=== PATIENT | male | born 2000 | race Caucasian/White ===

== ENCOUNTER → 2024-01-27 15:12 | Outpatient (REF) | payer BC, SELFPAY | LOC: RCS 15:12 | PROVIDERS: ATTENDING PHYSICIAN Nurse Practitioner Family | DX: Z76.89 Persons encountering health services in other specified circumstances (principal); F64.9 Gender identity disorder, unspecified; J30.2 Other seasonal allergic rhinitis; R00.2 Palpitations | CPT/HCPCS: 93005 ==

== ENCOUNTER → 2024-09-04 08:36 | Outpatient (REF) | payer OTHER, SELFPAY | LOC: RAD 08:36 | PROVIDERS: ATTENDING PHYSICIAN Nurse Practitioner Primary Care | DX: M54.50 Low back pain, unspecified (principal) | CPT/HCPCS: 72110 ==